=== PATIENT | female | born 1980 | race Caucasian/White ===

== ENCOUNTER 2018-05-09 16:37 | Emergency (ER) | payer OTHER ==
[~2018-05-09] VITALS: Ht 170.2 cm; Wt 111.6 kg
[~2018-05-09 16:37] MED LIST: AVIANE PO; BENTYL10 MG PO; BENTYL20 MG PO; CLON.5 PO; Effexor Xr150 MG PO; HYDACE5 PO; HYDPAM50 PO; HYDR1TAB94 PO; IBUP800 PO; Inderal40 MG PO; LAVAP17G PO; MULVITMINE; Norco 5-325 Ta1 EACH PO; OXYC10TA19 PO; PROM12.5S PR; PSYL5.85P PO; TRAZ150T57 PO; Trazodone HCl300 MG PO; Tylenol325 MG PO
[2018-05-09] MEDS ORDERED: Prozac20 MG (16:44)
[2018-05-09] MEDS ORDERED: Norco 5-325 Ta1 EACH PO (19:36)
[2018-05-09] MEDS ORDERED: IBUP600 PO (19:36)
[2018-05-09] MEDS ORDERED: CYCL10 PO (19:36)
[2018-05-09] MEDS ORDERED: Prednisone50 MG PO (19:36)
== END 2018-05-09 19:56 | disposition home or self-care (01) ==
LOC: ER 16:37
DX: M51.16 Intervertebral disc disorders with radiculopathy, lumbar region (principal); F17.210 Nicotine dependence, cigarettes, uncomplicated
CPT/HCPCS: 36415; 72148; 96374; 96375; 96376; 99283-25; J1100; J1170; J1885; J2405; J3010